=== PATIENT | female | born 1985 | race Caucasian/White ===

== ENCOUNTER → 2024-02-17 | Outpatient (CLI) | payer OTHER | LOC: M WHC 14:19 | PROVIDERS: ATTEND Nurse Practitioner Family | DX: Z12.31 Encounter for screening mammogram for malignant neoplasm of breast (principal); R92.313 Mammographic fatty tissue density, bilateral breasts ==

== ENCOUNTER → 2024-02-17 | Outpatient (CLI) | payer OTHER ==
[2024-02-17 18:42] LABS: FREE T4 0.95 NG/DL (0.89-1.76)
[2024-02-17 18:43] LABS: CORTISOL PM 5.2 UG/DL (3.1-16.7); THYROID STIMULATING HORMONE 1.188 uIU/ML (0.55-4.78)
[2024-02-17 18:45] LABS: HEMOGLOBIN A1c 5.9 % (4.0-6.0)
[2024-02-17 19:46] LABS: Trichomonas vaginalis (AMP) NOT DETECTED (NEGATIVE)
[2024-02-17 20:09] LABS: GC DNA AMPLIFICATION NEGATIVE (NEGATIVE)
[2024-02-19 14:47] LABS: HPV APTIMA Not Detected (Not Detected)
== END ==
LOC: M PLALAB 16:10
PROVIDERS: ATTEND Nurse Practitioner Family
DX: Z12.4 Encounter for screening for malignant neoplasm of cervix (principal); Z11.51 Encounter for screening for human papillomavirus (HPV); R63.5 Abnormal weight gain; E28.2 Polycystic ovarian syndrome

== ENCOUNTER → 2024-02-20 | Outpatient (CLI) | payer OTHER | LOC: M WHC 12:56 → EDUNIT# 13:15 | PROVIDERS: ATTEND Nurse Practitioner Family | DX: N83.202 Unspecified ovarian cyst, left side (principal) ==

== ENCOUNTER → 2024-03-10 | Outpatient (REF) | payer OTHER ==
[2024-03-10 18:49] LABS: APPEARANCE, URINE CLEAR (CLEAR); BACTERIA, URINE AUTO NEGATIVE (NEGATIVE); BILIRUBIN, URINE AUTO NEGATIVE (NEGATIVE); BLOOD, URINE BLOOD NEGATIVE (NEGATIVE); COLOR, URINE YELLOW (YELLOW); GLUCOSE, URINE (UA) AUTO NEGATIVE (NEGATIVE); KETONE, URINE AUTO NEGATIVE (NEGATIVE); LEUKOCYTE ESTERASE, URINE AUTO NEGATIVE (NEGATIVE); NITRITE, URINE AUTO NEGATIVE (NEGATIVE); PROTEIN, URINE AUTO NEGATIVE (NEGATIVE); RBC, URINE AUTO 0 /HPF (0-3); SPECIFIC GRAVITY URINE AUTO 1.016 (1.002-1.035); SQUAMOUS EPITHELIAL CELL UR AU 3 /HPF (0-6); UROBILINOGEN, URINE AUTO 0.2 mg/dL (0.0-2.0); WBC, URINE AUTO 2 /HPF (0-3)
== END ==
LOC: M SMT 16:57
PROVIDERS: ATTEND Urology
DX: D35.02 Benign neoplasm of left adrenal gland (principal)

== ENCOUNTER → 2024-05-05 | Outpatient (CLI) | payer OTHER | LOC: M PLALAB 12:22 | PROVIDERS: ATTEND Nurse Practitioner Family | DX: G25.81 Restless legs syndrome (principal) ==

== ENCOUNTER → 2024-06-14 | Outpatient (REF) | payer OTHER ==
[2024-06-14 18:33] LABS: ERYTHROCYTE SEDIMENTATION RATE 15 mm/hr (0-20)
[2024-06-14 18:58] LABS: RHEUMATOID FACTOR QUANT < 3.5 IU/ML (<14)
[2024-06-14 18:59] LABS: ALBUMIN 3.9 G/DL (3.2-5.2); ALKALINE PHOSPHATASE 85 U/L (35-104); ALT/SGPT 33 U/L (7.0-40); AST/SGOT 17 U/L (<34); BILIRUBIN,TOTAL 0.4 MG/DL (0.3-1.2); BLOOD UREA NITROGEN 19 MG/DL (9-23); CALCIUM LEVEL 9.4 MG/DL (8.5-10.1); CARBON DIOXIDE LEVEL 30 MMOL/L (20-31); CHLORIDE LEVEL 102 MMOL/L (98-107); GLOMERULAR FILTRATION RATE > 60.0 (>58); GLUCOSE, FASTING 92 MG/DL (60-100); POTASSIUM SERUM 3.7 MMOL/L (3.5-5.1); SODIUM LEVEL 137 MMOL/L (136-145); TOTAL PROTEIN 7.3 G/DL (5.7-8.2)
[2024-06-14 19:00] LABS: FOLATE 5.09 NG/ML (>5.4)
[2024-06-14 19:01] LABS: FREE T4 1.36 NG/DL (0.89-1.76); VITAMIN B12 LEVEL 353 PG/ML (211-911)
[2024-06-15 11:19] LABS: FERRITIN 71.8 NG/ML (7.3-270.7); IRON (FE) 57 UG/DL (50-170); TOTAL IRON BINDING CAPACITY 357 UG/DL (250-425)
[2024-06-15 11:33] LABS: HEMOGLOBIN A1c 5.7 % (4.0-6.0)
[2024-06-15 14:10] LABS: BASO # 0.1 10^3/uL (0.0-0.2); BASO % 0.7 % (0.0-1.0); EOS # 0.2 10^3/uL (0.0-0.5); EOS % 1.8 % (0.0-3.0); HEMATOCRIT 41.2 % (36.0-47.0); LYMPH # 3.3 10^3/uL (1.5-5.0); LYMPH % 36.9 % (24.0-44.0); MEAN CORPUSCULAR HEMOGLOBIN 28.3 pg (27.0-33.0); MEAN CORPUSCULAR VOLUME 83.4 fl (80.0-96.0); MONO # 0.5 10^3/uL (0.0-0.8); MONO % 5.9 % (2.0-8.0); NEUTROPHILS # 4.8 10^3/uL (1.5-8.5); NEUTROPHILS % 54.4 % (36.0-66.0); PLATELET COUNT, AUTOMATED 313 10^3/uL (150-450); RED BLOOD COUNT 4.94 10^6/uL (4.00-5.40); WHITE BLOOD COUNT 8.8 10^3/uL (4.0-10.0)
[2024-06-16 12:22] LABS: CYCLIC CITRULLINATED PEPTIDE < 16 UNITS (<20)
[2024-06-16 16:32] LABS: ANA SCREEN, IFA NEGATIVE (NEGATIVE)
== END ==
LOC: M SFHCCLAY 10:22
PROVIDERS: ATTEND Nurse Practitioner Family
DX: D50.9 Iron deficiency anemia, unspecified (principal); E28.2 Polycystic ovarian syndrome; I10 Essential (primary) hypertension; R21 Rash and other nonspecific skin eruption; K21.9 Gastro-esophageal reflux disease without esophagitis; M25.50 Pain in unspecified joint; G89.29 Other chronic pain; Q61.5 Medullary cystic kidney; K76.0 Fatty (change of) liver, not elsewhere classified; R41.840 Attention and concentration deficit; J38.2 Nodules of vocal cords; L91.8 Other hypertrophic disorders of the skin; Z86.03 Personal history of neoplasm of uncertain behavior; R73.03 Prediabetes

== ENCOUNTER → 2024-08-06 | Outpatient (REF) | payer OTHER ==
[2024-08-06 14:49] LABS: HEMOGLOBIN A1c 5.7 % (4.0-6.0)
== END ==
LOC: M SFHCCLAY 09:53
PROVIDERS: ATTEND Nurse Practitioner Family
DX: R73.03 Prediabetes (principal)

== ENCOUNTER → 2024-09-23 | Outpatient (REF) | payer OTHER ==
[~2024-09-23] MED LIST: COLA100C5 PO; DOXY50CA50 PO; GABA-1172 PO; HYDR-3490 PO; IBUP-1022 PO; LOSA50TA28 PO; METF10004 PO; OMEP40CA4 PO; OXYC1TAB23 PO
[2024-09-23 18:26] LABS: ALBUMIN 3.7 G/DL (3.2-5.2); ALKALINE PHOSPHATASE 93 U/L (35-104); ALT/SGPT 31 U/L (7.0-40); AST/SGOT 14 U/L (<34); BILIRUBIN,TOTAL 0.3 MG/DL (0.3-1.2); BLOOD UREA NITROGEN 14 MG/DL (9-23); CARBON DIOXIDE LEVEL 33 MMOL/L (20-31); CHLORIDE LEVEL 101 MMOL/L (98-107); CHOLESTEROL LEVEL 167 MG/DL (<200); CHOLESTEROL RISK RATIO 3.76 (<5); GLOMERULAR FILTRATION RATE > 60.0 (>58); GLUCOSE, FASTING 142 MG/DL (60-100); HDL CHOLESTEROL 44.4 MG/DL (>40); INR 0.93; NON-HDL-C 122.6 MG/DL; POTASSIUM SERUM 3.7 MMOL/L (3.5-5.1); PROTHROMBIN TIME 12.8 SECONDS (12.5-14.5); SODIUM LEVEL 140 MMOL/L (136-145); TOTAL PROTEIN 6.7 G/DL (5.7-8.2); TRIGLYCERIDES LEVEL 193 MG/DL (<150)
[2024-09-23 18:28] LABS: FREE T4 1.17 NG/DL (0.89-1.76)
[2024-09-23 18:29] LABS: THYROID STIMULATING HORMONE 1.151 uIU/ML (0.55-4.78)
[2024-09-23 18:38] LABS: BASO # 0.1 10^3/uL (0.0-0.2); BASO % 0.5 % (0.0-1.0); EOS # 0.2 10^3/uL (0.0-0.5); EOS % 1.9 % (0.0-3.0); HEMATOCRIT 42.1 % (36.0-47.0); HEMOGLOBIN 13.7 g/dl (12.0-15.5); LYMPH % 32.1 % (24.0-44.0); MEAN CORPUSCULAR HEMOGLOBIN 27.9 pg (27.0-33.0); MEAN CORPUSCULAR HGB CONC 32.5 g/dl (32.0-36.5); MEAN CORPUSCULAR VOLUME 85.7 fl (80.0-96.0); MONO # 0.6 10^3/uL (0.0-0.8); MONO % 5.9 % (2.0-8.0); NEUTROPHILS # 5.6 10^3/uL (1.5-8.5); PLATELET COUNT, AUTOMATED 298 10^3/uL (150-450); RED BLOOD COUNT 4.91 10^6/uL (4.00-5.40); WHITE BLOOD COUNT 9.4 10^3/uL (4.0-10.0)
[2024-09-23 18:45] LABS: HEMOGLOBIN A1c 5.9 % (4.0-6.0)
== END ==
LOC: M SFHCCLAY 10:33
PROVIDERS: ATTEND Nurse Practitioner Family
DX: Z01.818 Encounter for other preprocedural examination (principal); K59.00 Constipation, unspecified; D50.9 Iron deficiency anemia, unspecified; E28.2 Polycystic ovarian syndrome; I10 Essential (primary) hypertension; R21 Rash and other nonspecific skin eruption; K21.9 Gastro-esophageal reflux disease without esophagitis; Q61.5 Medullary cystic kidney; K76.0 Fatty (change of) liver, not elsewhere classified; R41.840 Attention and concentration deficit; J38.2 Nodules of vocal cords; L91.8 Other hypertrophic disorders of the skin; Z86.03 Personal history of neoplasm of uncertain behavior; R73.03 Prediabetes; L70.0 Acne vulgaris

== ENCOUNTER 2024-10-01 11:31 | Day surgery (SDC) | payer OTHER ==
[~2024-10-01] VITALS: Ht 167.6 cm; Wt 112.9 kg
[~2024-10-01 11:31] MED LIST changes: +ACETAMINOPHEN 1000MG/100ML IV BAG As Ordered ONE; -COLA100C5 PO; -IBUP-1022 PO; +LIDOCAINE 2% 100MG/5ML SDV (FOR ANES.) As Ordered ONE; -LOSA50TA28 PO; +MIDAZOLAM INJ 2MG/2ML VIAL As Ordered ONE; +ONDANSETRON 4MG 2ML VIAL As Ordered ONE; -OXYC1TAB23 PO; +ROCURONIUM BROMIDE 50MG/5ML VIAL As Ordered ONE; +SUGAMMADEX SODIUM 500 MG/5 ML VIAL (BRIDION) As Ordered ONE; +fentaNYL 100 MCG/2 ML INJECTION As Ordered ONE; +propofoL 200 MG/20 ML VIAL As Ordered ONE
[2024-10-01] MEDS ORDERED: LR 1,000 ML IV SCH ×3 (11:45→16:00)
[2024-10-01] MEDS ORDERED: LOSA50TA28 PO (11:58)
[2024-10-01 12:01] LABS: HEMATOCRIT 45.6 % (36.0-47.0); HEMOGLOBIN 15.2 g/dl (12.0-15.5); MEAN CORPUSCULAR HEMOGLOBIN 28.2 pg (27.0-33.0); MEAN CORPUSCULAR HGB CONC 33.3 g/dl (32.0-36.5); MEAN CORPUSCULAR VOLUME 84.6 fl (80.0-96.0); PLATELET COUNT, AUTOMATED 311 10^3/uL (150-450); RED BLOOD COUNT 5.39 10^6/uL (4.00-5.40); WHITE BLOOD COUNT 10.7 10^3/uL (4.0-10.0)
[2024-10-01] MEDS: SCOPOLAMINE 1MG TRANSDERMAL PATCH TOP ONE (12:39)
[2024-10-01] MEDS ORDERED: LABETALOL 100MG/20ML VIAL As Ordered ONE (13:27)
[2024-10-01] MEDS ORDERED: KETOROLAC 60MG 2ML VIAL As Ordered ONE (13:44)
[2024-10-01] MEDS ORDERED: HYDROMORPHONE HCL 0.5 MG/ 0.5 ML SYRINGE IV PRN (15:15)
[2024-10-01] MEDS ORDERED: ONDANSETRON 4MG 2ML VIAL IV PRN (15:15)
[2024-10-01] MEDS ORDERED: oxyCODONE 5MG TAB PO PRN (15:15)
[2024-10-01] MEDS ORDERED: fentaNYL 100 MCG/2 ML INJECTION IV PRN (15:15)
[2024-10-01] MEDS ORDERED: COLA100C5 PO (15:51)
[2024-10-01] MEDS ORDERED: IBUP-1022 PO (15:51)
[2024-10-01] MEDS ORDERED: OXYC1TAB23 PO (15:52)
[2024-10-01] MEDS ORDERED: PERCOCET 5MG/325MG TAB PO PRN (16:05)
[2024-10-01 16:55] VITALS: BP 138/67; TEMP 97.2; O2SAT 97
== END 2024-10-01 17:30 | disposition home or self-care (01) ==
LOC: M SDC 11:31
PROVIDERS: ATTEND Specialist
DX: D25.9 Leiomyoma of uterus, unspecified (principal); N93.9 Abnormal uterine and vaginal bleeding, unspecified; N83.02 Follicular cyst of left ovary; I10 Essential (primary) hypertension; R73.03 Prediabetes; Z98.51 Tubal ligation status; E27.8 Other specified disorders of adrenal gland; K21.9 Gastro-esophageal reflux disease without esophagitis; Z79.899 Other long term (current) drug therapy; Z79.84 Long term (current) use of oral hypoglycemic drugs; Z88.5 Allergy status to narcotic agent; Z88.8 Allergy status to other drugs, medicaments and biological substances
CPT/HCPCS: 36415; 58545; 58661; 85027; 86850; 86900; 86901; 88305; J0131; J0665; J1100; J1885; J1920; J2250; J2405; J3010; S2900

== ENCOUNTER 2025-03-26 19:40 | Emergency (ER) | payer OTHER ==
[~2025-03-26] VITALS: Ht 167.6 cm; Wt 243.0 kg
[~2025-03-26 19:40] MED LIST changes: -ACETAMINOPHEN 1000MG/100ML IV BAG As Ordered ONE; +COLA100C5 PO; +IBUP600T42 PO; -LIDOCAINE 2% 100MG/5ML SDV (FOR ANES.) As Ordered ONE; +LOSA50TA28 PO; -MIDAZOLAM INJ 2MG/2ML VIAL As Ordered ONE; -ONDANSETRON 4MG 2ML VIAL As Ordered ONE; +OXYC1TAB23 PO; -ROCURONIUM BROMIDE 50MG/5ML VIAL As Ordered ONE; -SUGAMMADEX SODIUM 500 MG/5 ML VIAL (BRIDION) As Ordered ONE; -fentaNYL 100 MCG/2 ML INJECTION As Ordered ONE; -propofoL 200 MG/20 ML VIAL As Ordered ONE
[2025-03-26 19:43] VITALS: TEMP 97.3
[2025-03-26 22:30] VITALS: BP 104/60
[2025-03-26 22:40] VITALS: O2SAT 99
[2025-03-26] MEDS ORDERED: VIMP100T PO (22:45)
[2025-03-26] MEDS: LACOSAMIDE 50 MG TAB PO ONE (22:57)
[2025-03-26] MEDS: ALPRAZolam 0.5 MG TAB PO ONE (22:57)
== END 2025-03-26 23:42 | disposition home or self-care (01) ==
LOC: M ED 19:40
DX: F41.9 Anxiety disorder, unspecified (principal); T42.6X5A Adverse effect of other antiepileptic and sedative-hypnotic drugs, initial encounter; I10 Essential (primary) hypertension; K21.9 Gastro-esophageal reflux disease without esophagitis; D50.9 Iron deficiency anemia, unspecified; Z79.899 Other long term (current) drug therapy; Z88.5 Allergy status to narcotic agent; Z88.8 Allergy status to other drugs, medicaments and biological substances

== ENCOUNTER 2025-04-07 23:32 | Emergency (ER) | payer OTHER ==
[~2025-04-07] VITALS: Ht 167.6 cm; Wt 113.6 kg
[~2025-04-07 23:32] MED LIST changes: +VIMP100T PO
[2025-04-08] MEDS: NS (Normal Saline) 0.9% 1,000 ML IV ONE (01:10)
[2025-04-08] MEDS: dexAMETHasone 4 MG/ML 1 ML VIAL IV ONE (01:10)
[2025-04-08] MEDS: ACETAMINOPHEN *IV* 1,000 MG in IV 1 EA IV ONE (01:16)
[2025-04-08 01:26] LABS: BASO # 0.1 10^3/uL (0.0-0.2); BASO % 0.7 % (0.0-1.0); EOS # 0.3 10^3/uL (0.0-0.5); EOS % 2.4 % (0.0-3.0); LYMPH # 2.7 10^3/uL (1.5-5.0); LYMPH % 25.8 % (24.0-44.0); MONO # 0.8 10^3/uL (0.0-0.8); MONO % 7.2 % (2.0-8.0); NEUTROPHILS # 6.6 10^3/uL (1.5-8.5); NEUTROPHILS % 63.5 % (36.0-66.0); PLATELET COUNT, AUTOMATED 230 10^3/uL (150-450)
[2025-04-08] MEDS: MAG SULF 1GM/100ML (MAG RUN) 1 GM in IV 1 EA IV ONE (01:42)
[2025-04-08 01:53] LABS: CALCIUM LEVEL 9.2 MG/DL (8.5-10.1); CARBON DIOXIDE LEVEL 31.0 MMOL/L (20-31); CHLORIDE LEVEL 102.0 MMOL/L (98-107); CREATININE FOR GFR 0.92 MG/DL (0.55-1.30); GLOMERULAR FILTRATION RATE 80.2 (>58); MAGNESIUM LEVEL 2.2 MG/DL (1.8-2.4); POTASSIUM SERUM 3.8 MMOL/L (3.5-5.1); SODIUM LEVEL 141.0 MMOL/L (136-145)
[2025-04-08 03:08] VITALS: BP 136/80; TEMP 97.5; O2SAT 99
== END 2025-04-08 03:22 | disposition home or self-care (01) ==
LOC: M ED 23:32
DX: G43.909 Migraine, unspecified, not intractable, without status migrainosus (principal); E11.9 Type 2 diabetes mellitus without complications; I10 Essential (primary) hypertension; R56.9 Unspecified convulsions; Z79.899 Other long term (current) drug therapy; Z88.5 Allergy status to narcotic agent; Z88.8 Allergy status to other drugs, medicaments and biological substances
CPT/HCPCS: 70450; 80048; 83735; 85025; 96365; 96367; 96375; 99284; J0131; J1100; J2765; J3475

== ENCOUNTER → 2025-05-02 | Outpatient (CLI) | payer OTHER ==
[~2025-05-02] MED LIST changes: +DIAZ2TAB PO; +HYDR50TA70 PO; +LACO100T11 PO; +OMEP40CA5 PO
== END ==
LOC: M ONCR 12:43
PROVIDERS: ATTEND General Practice
DX: C71.2 Malignant neoplasm of temporal lobe (principal); Z98.890 Other specified postprocedural states; Z90.49 Acquired absence of other specified parts of digestive tract; Z98.51 Tubal ligation status; Z88.5 Allergy status to narcotic agent; Z88.8 Allergy status to other drugs, medicaments and biological substances; Z79.899 Other long term (current) drug therapy

== ENCOUNTER 2025-05-09 10:39 | Outpatient (RCR) | payer OTHER | END 2025-05-27 | LOC: M ONCR 10:39 | PROVIDERS: ATTEND General Practice | DX: Z51.0 Encounter for antineoplastic radiation therapy (principal); C71.2 Malignant neoplasm of temporal lobe ==

== ENCOUNTER → 2025-06-03 | Outpatient (CLI) | payer OTHER ==
[~2025-06-03] MED LIST changes: +PROHANCE 279.3MG/ML 15ML VIAL As Ordered ONE; +PROHANCE 279.3MG/ML 5ML VIAL As Ordered ONE
== END ==
LOC: M RAD 06:58
PROVIDERS: ATTEND General Practice
DX: C71.2 Malignant neoplasm of temporal lobe (principal); G93.89 Other specified disorders of brain
CPT/HCPCS: 70553; A9579

== ENCOUNTER 2025-06-22 15:23 | Outpatient (RCR) | payer OTHER ==
[~2025-06-22 15:23] MED LIST changes: +DIAZ5TAB PO; -PROHANCE 279.3MG/ML 15ML VIAL As Ordered ONE; -PROHANCE 279.3MG/ML 5ML VIAL As Ordered ONE
== END 2025-06-26 ==
LOC: M ONCR 15:23
PROVIDERS: ATTEND General Practice
DX: Z51.0 Encounter for antineoplastic radiation therapy (principal); C71.2 Malignant neoplasm of temporal lobe

== ENCOUNTER 2025-07-19 15:40 | Outpatient (RCR) | payer OTHER ==
[~2025-07-19 15:40] MED LIST changes: +ONDA-282 PO
[2025-07-29] MEDS ORDERED: DEXA4TA PO (15:57)
== END 2025-07-27 ==
LOC: M ONCR 15:40
PROVIDERS: ATTEND General Practice
DX: Z51.0 Encounter for antineoplastic radiation therapy (principal); C71.2 Malignant neoplasm of temporal lobe